=== PATIENT | male | born 1955 | race Caucasian/White ===

== ENCOUNTER 2016-12-12 07:52 | Inpatient (IN) ==
[2016-12-12] MEDS ORDERED: NOZIN NASAL SWAB NAS ONE ×3 (08:17→13:40)
[2016-12-12] MEDS ORDERED: TRANEXAMIC ACID 1,000 MG in NS 100 ML IV ONE (08:17)
[2016-12-12] MEDS ORDERED: MELOXICAM 15 MG TABLET PO ONE (08:17)
[2016-12-12] MEDS ORDERED: ONDANSETRON 4 MG/2 ML INJECTION IVP ONE (08:17)
[2016-12-12] MEDS ORDERED: SALINE FLUSH 10ml SYRINGE IVF PRN (08:17)
[2016-12-12] MEDS ORDERED: FAMOTIDINE PREMIX 20 MG/50 ML BAG IV ONE (08:17)
[2016-12-12] MEDS ORDERED: ACETAMINOPHEN 500 MG TABLET PO ONE (08:17)
[2016-12-12] MEDS ORDERED: METOCLOPRAMIDE 10mg/2ml INJECTION IVP ONE (08:17)
[2016-12-12] MEDS ORDERED: CLINDAMYCIN PREMIX 900 MG/50 ML BAG IV ONE (08:17)
[2016-12-12] MEDS ORDERED: DEXAMETHASONE 4 MG/ML INJECTION IVP ONE (08:17)
[2016-12-12] MEDS ORDERED: LIDOCAINE 1% (10mg/ml) 2mL INJ PF SDV ID ONE (08:54)
[2016-12-12] MEDS: LR 1,000 ML IV SCH ×2 (08:55→10:55)
--- NOTE | 2016-12-12 09:13 | History & Physical Update ---
- History and Physical Update Date: 12/12/16 Update: I evaluated this patient and found no changes in the history and clinical exam findings. The treatment plan and recommendations are also unchanged from the previous documentation.
[2016-12-12] MEDS ORDERED: LIDOCAINE 1% (10mg/ml) 10mL MDV SQ ONE (09:25)
[2016-12-12] MEDS ORDERED: VANCOMYCIN 1,000 MG INJECTION ONE (09:58)
[2016-12-12] MEDS ORDERED: EPINEPHrine 0.25 MG, BUPIVACAINE 0.25% PF 75 ML, MORPHINE SULFATE 15 MG, KETOROLAC INJ ... IJ ONE (10:00)
[2016-12-12] MEDS ORDERED: FentaNYL 100 MCG/2 ML INJECTION ONE (10:08)
[2016-12-12] MEDS ORDERED: MIDAZOLAM 2mg/2ml INJECTION ONE (10:09)
[2016-12-12] MEDS ORDERED: KETAMINE 500 MG/10 ML INJECTION ONE (10:20)
[2016-12-12] MEDS ORDERED: VANCOMYCIN 1,000 MG INJECTION IAR ONE (10:55)
[2016-12-12] MEDS ORDERED: PROPOFOL 20 ML ONE (11:53)
--- NOTE | 2016-12-12 11:57 | Operative Note ---
- Procedure Date of Admission: 12/12/16 Side: right Preoperative Diagnosis: knee primary DJD Postoperative Diagnosis: Same as preoperative diagnosis. Operation: total knee arthroplasty (right) Surgeon: Aurora Llanos MD Compliance Testing Analyst: JOHN Samuel Complications: None. Regional/Trunk Block: Spinal Peripheral Nerve Block: Saphenous-Left Estimated Blood Loss: See Anesthesia Record. Fluids: Please see Anesthesia Record. Description of Procedure: Mr. Katz in his right knee were identified and marked in the preoperative holding area. He was brought back to the operating suite and spinal anesthetic was administered. He was placed supine on the operating table in the right lower extremity was prepped and draped in my normal sterile fashion. Timeout was performed. He had severe disease in the medial compartment and fixed varus deformity. An anterior midline incision followed by medial parapatellar arthrotomy was performed. The tourniquet was not used until cementing. Hemostasis was obtained with electrocautery. The patella was resurfaced. A distal femoral osteotomy was then performed in 5 of valgus using intramedullary guide. The femur was sized at a 6 and rotation set using the epicondylar axis. Distal femoral cuts were performed with a 4-in-1 cutting block. A proximal tibial cut was then made perpendicular to its long axis using an extramedullary guide. At this point remaining meniscus and osteophytes were removed and joint cocktail was injected throughout soft tissue. Trial components were placed with a 9 mm spacer. This allowed for full extension and flexion and the patella tracked well. He was a little tight medially so a larger medial release was performed as well as a partial release of the PCL. The leg was then exsanguinated and the tourniquet inflated to 250 mmHg. The tibia was then stamped at a size 6 at the proper rotation. The bone was then prepared for cementing and Derick Triathalon components were cemented into place and allowed to cure in extension. The tourniquet was then let down and hemostasis obtained with electrocautery. Betadine solution was used during the curing period for 3 minutes. 1 g of vancomycin powder was placed into the joint before the capsulotomy was repaired with #1 Vicryl. I then left my property assistant close the subcutaneous tissue and skin with 2-0 Vicryl and Monocryl. Dermabond was used on the skin. The drapes were then removed and she was taken to recovery room under the care of anesthesia.
[2016-12-12] MEDS ORDERED: ROPIVACAINE 0.5% (5mg/ml) 30ml INJ ONE (13:15)
--- NOTE | 2016-12-12 13:22 | XRay Report ---
Indication: postoperative image PROCEDURE: XR knee LT 2V: Encounter: Initial Comparison: None Findings: Postoperative changes of right total knee replacement are seen. There is expected postoperative subcutaneous gas. No evidence of hardware failure or acute fracture. No retained radiopaque surgical instruments or sponges. Overlying material causing artifact. Impression: New right total knee prosthesis without evidence of immediate complication. .
--- NOTE | 2016-12-12 13:28 | Anesthesia Procedure Note ---
Peripheral Nerve Blockade - Procedure Physician: Prasanth Llanos MD Date: 12/12/16 Surgical Procedure: right total knee Discussion: Discussed risks/options/alternatives of anesthesia and questions answered. Patient consents. Nursing pain assessment noted. Block Start: 13:18 Block Stop: 13:21 Indication: Post-Operative Pain Approach: Right Side Confirmed Position: Supine Patient: Consent IV Sedation: No Initial Vital Signs: Temperature 98.3 F 12/11/16 02:14 Temperature Source Oral 12/11/16 02:14 Pulse Rate 60 12/11/16 02:14 Respiratory Rate 15 12/11/16 02:14 Blood Pressure 155/82 H 12/11/16 02:14 Blood Pressure Mean 106 12/11/16 02:14 Pulse Oximetry 96 12/11/16 02:14 Oxygen Delivery Method 12/11/16 02:14 Post Vital Signs: Temp Pulse Resp BP Pulse Ox 97.5 F 55 L 13 93/50 92 12/12/16 12:24 12/12/16 13:00 12/12/16 13:00 12/12/16 13:00 12/12/16 13:00 Initial Pain Pain Score: 0 Post Block Pain Score: 0 Prep: Chlorhexadine/ETOH Ultrasound Used?: Yes - Injectate Ropivacaine (%): 0.5 Ropivacaine (mL): 15 Was Epi 1:200,000 Used?: No Injection: Injection made incrementally with constant monitoring and aspiration every ml
--- NOTE | 2016-12-12 13:30 | Anesthesia Postoperative Note ---
- Date and Time Date: 12/12/16 Time: 13:25 - Status Patient Participated in Evaluation: Patient Participated in Person Vital Signs: Temp Pulse Resp BP Pulse Ox 97.5 F 45 L 14 105/60 92 12/12/16 12:24 12/12/16 13:20 12/12/16 13:20 12/12/16 13:20 12/12/16 13:05 Respiratory Function: Airway Patent EKG Rhythm: Normal Sinus Rhythm Mental Status: Alert and Oriented Hydration: IV Infusing Complications During Recover: None Apparent - Follow-Up Instructions Instructions: Per Surgeon
[2016-12-12] MEDS ORDERED: DiphenhydrAMINE 50 MG/ML INJECTION IVP PRN (13:40)
[2016-12-12] MEDS ORDERED: OXYCODONE IR 5 MG TABLET PO PRN (13:40)
[2016-12-12] MEDS ORDERED: DiphenhydrAMINE 25 MG CAPSULE PO PRN (13:40)
[2016-12-12] MEDS ORDERED: ONDANSETRON 4 MG/2 ML INJECTION IVP PRN (13:40)
[2016-12-12] MEDS ORDERED: NAPROXEN 220 MG TABLET PO PRN (13:40)
[2016-12-12] MEDS ORDERED: LORazepam 1 MG TABLET PO PRN (13:40)
[2016-12-12] MEDS: NS 1,000 ML IV SCH (13:57)
[2016-12-12] MEDS: NOZIN NASAL SWAB NAS SCH ×5 (14:07→23:09)
[2016-12-12] MEDS: ACETAMINOPHEN 325 MG TABLET PO SCH ×3 (14:54→22:22)
[2016-12-12] MEDS: CLINDAMYCIN PREMIX 900 MG/50 ML BAG IV SCH ×2 (16:19→22:24)
[2016-12-12] MEDS ORDERED: SENNOSIDES 8.6 MG TABLET PO SCH (22:00)
[2016-12-12] MEDS: ASPIRIN *EC* 325 MG TABLET PO SCH ×2 (22:22→22:27)
[2016-12-12] MEDS: DOCUSATE SODIUM 100 MG CAPSULE PO SCH (22:23)
[2016-12-13] MEDS: NS 1,000 ML IV SCH (02:48)
[2016-12-13] MEDS: CLINDAMYCIN PREMIX 900 MG/50 ML BAG IV SCH (04:17)
[2016-12-13] MEDS: NOZIN NASAL SWAB NAS SCH ×2 (05:59)
[2016-12-13] MEDS ORDERED: OMEPRAZOLE 20 MG CAPSULE PO SCH (06:30)
--- NOTE | 2016-12-13 08:19 | Orthopedic Progress Note ---
Date: Subjective/Severity of Illness: Mr Katz is doing well. Pain is minimal and very well controlled. He has been mobile with good tolerance. Denies CP, cough or SOA. He anticipated discharge later today. Orthopedic Objective Vital signs: Temp Pulse Resp BP Pulse Ox 97.9 F 55 L 16 126/73 95 12/13/16 07:50 12/13/16 07:50 12/13/16 07:50 12/13/16 07:50 12/13/16 07:50 Height and Weight: Height 5 ft 9.5 in Weight 261 lb 3.964 oz Body Mass Index 38.0 - Constitutional General Appearance: Present: alert, no acute distress - Respiratory Exam Present: non-labored - Integumentary Exam Present: pink, warm, dry - Neurological Exam Present: intact to light touch - Psychiatric Exam Present: alert, normal affect - Wound Management Right Knee Dressing Status: Dry & Intact Primary Dressing: Mepilex - Labs Result Diagrams: 12/13/16 04:06 12/13/16 04:06 Abnormal lab results 12/13/16 12/13/16 Range/Units 04:06 04:06 WBC 14.1 H (4.5-11.0) T/MM3 RBC 4.12 L (4.50-5.90) M/MM3 Hgb 12.9 L (13.5-17.5) GM/DL Hct 38.4 L (41-53) % Creatinine 0.7 L (0.8-1.5) MG/DL H & H 12/13/16 Range/Units 04:06 Hgb 12.9 L (13.5-17.5) GM/DL Hct 38.4 L (41-53) % Orthopedic Assessment and Plan (1) Primary osteoarthritis of right knee Status: Chronic Assessment and Plan: Aspirin protocol for VTE prophylaxis. SCD' and early mobilization for added DVT coverage. PT/OT services to improve independent function. Discharge Planning per Case Management. Hospital Course Summary Disclaimer: The visit summary below is not to be considered part of the above Progress Note.
[2016-12-13] MEDS: ACETAMINOPHEN 325 MG TABLET PO SCH (08:22)
[2016-12-13] MEDS: DOCUSATE SODIUM 100 MG CAPSULE PO SCH (08:22)
[2016-12-13] MEDS ORDERED: POLYETHYL GLYCOL 3350 17gm PACKET PO SCH (09:00)
[2016-12-13] MEDS: ASPIRIN *EC* 325 MG TABLET PO SCH (10:02)
[2016-12-13] MEDS ORDERED: SENNOSIDES 8.6 MG TABLET PO PRN (12:13)
--- NOTE | 2016-12-13 13:29 | Discharge Summary ---
Discharge Plan - Med Rec/Dispo Referrals/Follow Up: Prasanth Llanos MD [Physician] - 01/08/17 11:30 am [place] Instructions: [facility] [place] General Instructions, [facility] [place] Ortho Postop Instructions Additional Instructions: [facility] ON 12/16/2016 AT 2:00PM FOR PHYSICAL THERAPY EVAL. PHONE [phone] Prescriptions: New Aspirin *EC* [Ecotrin] 325 mg PO BID #84 Docusate Sodium [Colace] 100 mg PO BID cap Naproxen Sodium [All Day Relief] 440 mg PO BID PRN PRN Reason: Pain Oxycodone *Ir* [Roxicodone *Ir*] 5 - 15 mg PO Q3H PRN #60 PRN Reason: Breakthrough Pain Peg 3350 17 G Packet [Miralax] 17 gm PO DAILY packet Acetaminophen [Tylenol] 650 mg PO QID Milk of Magnesia [Mom] 30 ml PO DAILY Continue Omeprazole 20 mg PO ACB #0 cap Calcium Citrate + D [Citrical + D] 1 tab PO DAILY Docusate Sodium [Colace] 1 cap PO PRN PRN PRN Reason: Stool Softening bariatric vitamins 1 tab PO DAILY #0 - Disposition 01 Discharged Home, Self-Care
--- NOTE | 2016-12-13 13:34 | Discharge Summary ---
Orthopedic Discharge Info Date of admission: 12/12/16 07:52 Anticipated date of discharge: 12/13/16 Primary care physician: Rene Oliveros Attending Physician: Prasanth Llanos MD Consults: 12/12/16 08:17 Consult to Anesthesiology [CONS] Routine Consulting Provider: JOHN Gaines Reason For Exam: Preoperative Assessment 12/12/16 13:40 Case Management Consult [CONS] Routine Reason For Exam: Discharge Planning DME-Walker [CONS] Routine Height: 5 ft 9.5 in Weight: 261 lb 3.964 oz Comment: change dressing in 2 weeks Total Joint Outpatient Therapy [CONS] Routine Comment: change dressing in 2 weeks - Discharge Diagnosis (1) Primary osteoarthritis of right knee Status: Chronic - Procedures Procedures: TKA - Laboratory Result Diagrams: 12/13/16 04:06 12/13/16 04:06 Laboratory: Abnormal lab results 12/13/16 12/13/16 Range/Units 04:06 04:06 WBC 14.1 H (4.5-11.0) T/MM3 RBC 4.12 L (4.50-5.90) M/MM3 Hgb 12.9 L (13.5-17.5) GM/DL Hct 38.4 L (41-53) % Creatinine 0.7 L (0.8-1.5) MG/DL H & H 12/13/16 Range/Units 04:06 Hgb 12.9 L (13.5-17.5) GM/DL Hct 38.4 L (41-53) % Orthopedic Discharge HPI - HPI Comments This patient was admitted for elective surgical tx of end stage degenerative joint disease that failed to respond to conservative treatment. Further details of this is found in the admission H&P. Ortho Fracture Risks/Benefits Risks and benefits of the recommended procedure were discussed with the patient and/or patient's legal plastic products sales representative. They include: infection, nerve damage, artery damage, stroke, AK, PE, DVT, ileus, continued pain, or risk that the injury may not heal despite surgery. There are also medical risks of anesthesia. Risks are not limited to the above mentioned alone. Orthopedic Hospital Course Hospital course: 12/13/16 13:32 After appropriate preoperative clearance and signing of operative consent, the patient was given IV antibiotics, according to orthopedic protocol. The patient was taken to the operating room and underwent elective total knee arthroplasty. Following surgery, antibiotics were discontinued less than 24 hours according to joint protocol. Aspirin initiated and SCDs added for DVT prevention. The dressing was clean, dry, and intact. Pain control was obtained via multimodal approach. Bowel motivation addressed with scheduled and PRN medications. Early mobilization was initiated through PT services. Discharge arrangements made by a collaborative effort between the patient and Case Management. Follow-up is scheduled in 2-3 weeks. Discharge instructions given by orthopedic providers and nursing staff at discharge. Discharge condition was good. Ongoing care required?: No Discharge Plan - Med Rec/Dispo Referrals/Follow Up: Prasanth Llanos MD [Physician] - 01/08/17 11:30 am [place]ructions: [facility] [place], [facility] [place] Postop Instructions Additional Instructions: [facility] ON 12/16/2016 AT 2:00PM FOR PHYSICAL THERAPY EVAL. PHONE [phone] Prescriptions: New Aspirin *EC* [Ecotrin] 325 mg PO BID #84 Docusate Sodium [Colace] 100 mg PO BID cap Naproxen Sodium [All Day Relief] 440 mg PO BID PRN PRN Reason: Pain Oxycodone *Ir* [Roxicodone *Ir*] 5 - 15 mg PO Q3H PRN #60 PRN Reason: Breakthrough Pain Peg 3350 17 G Packet [Miralax] 17 gm PO DAILY packet Acetaminophen [Tylenol] 650 mg PO QID Milk of Magnesia [Mom] 30 ml PO DAILY Continue Omeprazole 20 mg PO ACB #0 cap Calcium Citrate + D [Citrical + D] 1 tab PO DAILY Docusate Sodium [Colace] 1 cap PO PRN PRN PRN Reason: Stool Softening bariatric vitamins 1 tab PO DAILY #0 - Disposition 01 Discharged Home, Self-Care
[2016-12-14] MEDS ORDERED: BISACODYL 10 MG SUPPOSITORY RECTALLY SCH (20:00)
== END 2016-12-13 14:04 | disposition home or self-care (01) | DRG 470 ==
LOC: SRG 07:52
PROVIDERS: ADMIT Orthopaedic Surgery; ATTEND Orthopaedic Surgery